=== PATIENT | male | born 1965 | race Caucasian/White ===

== ENCOUNTER 2021-10-27 13:24 | Emergency (ER) | payer SELFPAY | END 2021-10-27 17:06 | disposition home or self-care (01) | LOC: ER1 13:24 | DX: S61.412A Laceration without foreign body of left hand, initial encounter (principal); W26.0XXA Contact with knife, initial encounter; Y92.89 Other specified places as the place of occurrence of the external cause; Y99.0 Civilian activity done for income or pay | CPT/HCPCS: 12001; 99282 ==